=== PATIENT | female | born 1955 | race Caucasian/White ===

== ENCOUNTER 2019-04-19 07:21 | Day surgery (SDC) | payer BC ==
[~2019-04-19 07:21] MED LIST: Acetaminophen TAB* 325 MG PO PRN; Buffered Lidocaine 1% SYRIN* 1 ML/SYRINGE INTRADERM ONE; DiMENhydriNATE IV* 50 MG/ML VIAL IV PUSH PRN; HYDROmorphone INJ1* 1 MG/ML SYRINGE IV PRN; Lactated Ringers 1000 ML Bag* 1,000 ML IV SCH; Lidocaine 2% PF * 5 ML VIAL ONE; Naloxone* 0.4 MG/ML 1 ML VIAL IV PRN; Succinylcholine* 20 MG/ML 10 ML VIAL ONE; oxyCODONE TAB* 5 MG TAB PO PRN
[2019-04-19] MEDS ORDERED: Midazolam* 1 MG/ML 2 ML VIAL (2 MG) ONE (08:46)
[2019-04-19] MEDS ORDERED: fentaNYL* 50 MCG/ML 2 ML VIAL (100 MCG VIAL) ONE (08:47)
[2019-04-19] MEDS ORDERED: Lidocaine 4% TOPICAL* 50 ML TOP.SOLN ONE (09:12)
[2019-04-19] MEDS ORDERED: Lidocaine 1% w EPI 1:100,000* MDV 20 ML VIAL ONE (09:12)
[2019-04-19] MEDS ORDERED: Oxymetazoline 0.05% NASAL SPR* 15 ML BTL ONE (09:12)
[2019-04-19] MEDS ORDERED: Bacitracin OINTMENT* 0.5% 0.5 oz TUBE ONE (09:12)
[2019-04-19] MEDS ORDERED: Metoclopramide IV* 5 MG/ML 2 ML VIAL ONE ×2 (09:41→10:02)
[2019-04-19] MEDS ORDERED: Ondansetron INJ* 2 MG/ML VIAL ONE ×2 (09:41→10:02)
[2019-04-19] MEDS ORDERED: Dexamethasone IV* 4 MG/ML 1 ML (4 MG) ONE ×2 (09:41→10:02)
[2019-04-19] MEDS ORDERED: oxyCODONE TAB* 5 MG TAB ONE (11:01)
[2019-04-19] MEDS ORDERED: Acetaminophen TAB* 325 MG ONE (11:01)
[2019-04-19 13:14] VITALS: BP 107/65
--- NOTE | 2019-04-19 13:34 | OP ---
OPERATIVE REPORT: DATE OF OPERATION: 04/19/19 DATE OF : 55 SURGEON: Hudson Bro MD. ANESTHESIA: General endotracheal anesthesia. PRE-OP DIAGNOSIS: Chronic maxillary sinusitis. POST-OP DIAGNOSIS: Chronic maxillary sinusitis. OPERATIVE PROCEDURE: Bilateral endoscopic sinus surgery with maxillary antrostomies with debridement under general endotracheal anesthesia. COMPLICATIONS: None. DISPOSITION: Good. SPECIMENS: Left and right sinus contents. DESCRIPTION OF PROCEDURE: The patient was taken to the operating room, placed in the supine position on the operating room table. General anesthesia was induced and she was orotracheally intubated. H er nose was packed with cottonoids impregnated with oxymetazoline and 4% lidocaine. She was draped f or the surgery. Packs were removed. Middle turbinates, uncinate process, and lateral ames were inje cted with 1% lidocaine with 1:100,000 epinephrine. The middle turbinates were medialized. A curved seeker were used to find the ostium of the maxillary sinus. The uncinate process was partially medial ized. A sickle knife was used to make an anterior cut on the anterior aspect of the uncinate process . This was grasped and debrided with a Blakesley. The backbiters and Blakesley's were used to widen the ostium of the maxillary sinus of thickened scar tissue. Stammberger Sinu-Foam was placed and na sopharynx was suctioned. This was done bilaterally. The patient tolerated the procedure well. No c omplications. Transferred to the recovery room in stable condition. [id number]/[facility] #: [id number]
== END 2019-04-19 13:00 | disposition home or self-care (01) ==
LOC: OR 07:21
PROVIDERS: ATTEND Otolaryngology
DX: J32.0 Chronic maxillary sinusitis (principal); Z87.891 Personal history of nicotine dependence; J30.1 Allergic rhinitis due to pollen; F32.9 Major depressive disorder, single episode, unspecified
CPT/HCPCS: 88305; A9270-GY; J0330; J1100; J2250; J2405; J2765; J3010